=== PATIENT | male | born 1995 | race Caucasian/White ===

== ENCOUNTER → 2019-05-24 | Outpatient (CLI) | payer OTHER ==
--- NOTE | 2019-05-24 13:23 | RADIOLOGY REPORT (SQ) ---
EXAM DESCRIPTION: DUPLEX ART/BABAK FLOW COMPLETE COMPLETED DATE/TIME: 05/24/2019 11:00 am REASON FOR STUDY: HTN COMPARISON: None. TECHNIQUE: Realtime and static grayscale images acquired. Selected color Doppler, velocities and spe ctral images recorded. LIMITATIONS: Unable to visualize the renal artery origins off the aorta due to midline bowel gas FINDINGS: RIGHT KIDNEY: RENAL ARTERY VELOCITIES: At the hilum, 120 cm/sec. Segmental artery velocity 69 cm/sec. RENAL VEIN: Color doppler flow present, patent. VELOCITY RATIO: Normal. Normal waveforms. KIDNEY: Normal size. No significant pathology. LEFT KIDNEY: RENAL ARTERY VELOCITIES: At the hilum 160 cm/sec. Segmental artery velocity 69 cm/sec. RENAL VEIN: Color doppler flow present, patent. VELOCITY RATIO: Normal. Normal waveforms. KIDNEY: Normal size. No significant pathology. BLADDER: Decompressed, not well seen. OTHER: No other significant finding. IMPRESSION: NO DOPPLER EVIDENCE OF HEMODYNAMICALLY SIGNIFICANT RENAL ARTERY STENOSIS. LIMITED STUDY COMMENT: NORMAL RENAL ARTERY/AORTA VELOCITY RATIO IS LESS THAN OR EQUAL TO 3.5. TECHNICAL DOCUMENTATION: JOB ID: [id number] [email or web address]- All Rights Reserved Reading location - IP/workstation name: [email or web address]
== END ==
LOC: RAD 10:09
PROVIDERS: ATTEND Internal Medicine Cardiovascular Disease
DX: I70.1 Atherosclerosis of renal artery (principal)
CPT/HCPCS: 93975

== ENCOUNTER 2020-05-28 16:52 | Emergency (ER) | payer SELFPAY ==
[2020-05-28] MEDS ORDERED: MAG HYDROX/AL HYDROX/SIMETH SUSP 30 ML UDCUP PO ONE (20:40)
[2020-05-28] MEDS ORDERED: METOCLOPRAMIDE HCL ORAL SOLN 10 MG/10 ML UDCUP PO ONE (20:40)
[2020-05-28] MEDS ORDERED: LIDOCAINE 2% VISCOUS SOLN 15 ML UDCUP PO ONE (20:40)
--- NOTE | 2020-05-28 20:48 | ER Document Report ---
ED GI/ - General Chief Complaint: Abdominal Pain Stated Complaint: ABDOMINAL PAIN Time Seen by Provider: 05/28/20 20:07 Primary Care Provider: SUHA CAPPS MD [ACTIVE STAFF] - Follow up as needed Mode of Arrival: Ambulatory Information source: Patient Notes: 24-year-old male patient presented to the emergency department chief complaint of upper abdominal pain. Patient reports pain has been ongoing for the last 7 to 8 months. He states every time he eats he vomits. He states the only time he does not vomit after eating but if he eats a very small meal. Patient denies any fever, chills, nausea or diarrhea. He denies any sick contacts. Denies any concern for exposure to Covid. He has a history of hypertension, states he has not taken his medications as the [facility] doctor had him on multiple medications that were making him not feel well. TRAVEL OUTSIDE OF THE [place] IN LAST 30 DAYS: No - Related Data Allergies/Adverse Reactions: nifedipine Allergy (Verified 05/28/20 21:06) Past Medical History - General Information source: Patient - Social History Smoking Status: Never Smoker Frequency of alcohol use: Social Family History: Reviewed & Not Pertinent Patient has homicidal ideation: No - Past Medical History Cardiac Medical History: Reports: Hx Hypertension Past Surgical History: Reports: Hx Oral Surgery Review of Systems - Review of Systems Gastrointestinal: Abdominal pain, Vomiting -: Yes All other systems reviewed and negative Physical Exam - Vital signs Vitals: Temp Pulse Resp BP Pulse Ox 98.2 F 104 H 20 183/104 H 97 05/28/20 17:14 05/28/20 17:14 05/28/20 17:14 05/28/20 17:14 05/28/20 17:14 - Notes Notes: PHYSICAL EXAMINATION: GENERAL: Well-appearing, well-nourished and in no acute distress. HEAD: Atraumatic, normocephalic. EYES: Pupils equal round and reactive to light, extraocular movements intact, sclera anicteric, conjunctiva are normal. ENT: Nares patent, oropharynx clear without exudates. Moist mucous membranes. NECK: Normal range of motion, supple without lymphadenopathy LUNGS: Breath sounds clear to auscultation bilaterally and equal. No wheezes rales or rhonchi. HEART: Regular rate and rhythm without murmurs ABDOMEN: Soft, nondistended abdomen. Epigastric tenderness with palpation. No guarding, no rebound. No masses appreciated. Musculoskeletal: Normal range of motion, no pitting or edema. No cyanosis. NEUROLOGICAL: Cranial nerves grossly intact. Normal speech, normal gait. Normal sensory, motor exams PSYCH: Normal mood, normal affect. SKIN: Warm, Dry, normal turgor, no rashes or lesions noted. Course - Re-evaluation Re-evalutation: Work-up today has been reassuring. Patient had a CT and abdomen pelvis which showed no acute findings. Laboratory investigations without any acute findings. Patient will be referred to gastroenterology for possible endoscopy for his epigastric pain. We will start him on some Carafate and omeprazole. Patient agreeable to this plan. ED return precautions discussed, patient verbalized understanding and agreement with same. - Vital Signs Vital signs: Temp Pulse Resp BP Pulse Ox 98.2 F 78 19 155/99 H 98 05/29/20 00:22 05/29/20 00:22 05/29/20 00:22 05/29/20 00:22 05/29/20 00:22 - Laboratory Results Result Diagrams: 05/28/20 21:20 05/28/20 21:20 Laboratory Results Interpreted: 05/28/20 05/28/20 21:20 21:20 RDW 14.1 H Sodium 136.4 L AST 68 H ALT 114 H Critical Laboratory Results Reviewed: No Critical Results - Radiology Results Critical Radiology Results Reviewed: No Critical Results Discharge - Discharge Clinical Impression: Epigastric pain Gastroesophageal reflux Qualifiers: Esophagitis presence: with esophagitis Esophagitis bleeding: unspecified whet her hemorrhage Qualified Code(s): K21.00 - Gastro-esophageal reflux disease with esophagitis, without bleeding Condition: Stable Disposition: HOME, SELF-CARE Additional Instructions: Please take medications as prescribed. Continue to eat small meals. Follow-up with gastroenterology for consideration of a endoscopy. Return if any new or worsening conditions. Prescriptions: Sucralfate [Carafate 1 gm Tablet] 1 gm PO ACHS #60 tablet Omeprazole 40 mg PO DAILY #30 capsule.dr Referrals: SUHA CAPPS MD [ACTIVE STAFF] - Follow up as needed
[2020-05-28 21:45] LABS: ABSOLUTE EOSINOPHILS # (AUTO) 0.1 10^3/uL (0.0-0.6); ABSOLUTE LYMPHOCYTES (AUTO) 2.5 10^3/uL (0.5-4.7); ABSOLUTE MONOCYTES (AUTO) 0.7 10^3/uL (0.1-1.4); ABSOLUTE NEUT (AUTO) 5.5 10^3/uL (1.7-8.2); BASOPHILS % (AUTO) 0.4 % (0-2); EOSINOPHILS % (AUTO) 0.9 % (0-6); HEMATOCRIT 42.8 % (37.9-51.0); HEMOGLOBIN 14.8 g/dL (13.5-17.0); MEAN CORPUSCULAR HEMOGLOBIN 31.5 pg (27.0-33.4); MEAN CORPUSCULAR HGB CONC 34.5 g/dL (32.0-36.0); MEAN CORPUSCULAR VOLUME 91 fl (80-97); PLATELET COUNT 205 10^3/uL (150-450); RED BLOOD COUNT 4.69 10^6/uL (4.35-5.55); RED CELL DISTRIBUTION WIDTH 14.1 % (11.5-14.0); SEGMENTED NEUTROPHILS % (AUTO) 62.7 % (42-78); TOTAL CELLS COUNTED % (AUTO) 100 %; WHITE BLOOD COUNT 8.8 10^3/uL (4.0-10.5)
[2020-05-28 21:51] LABS: ALBUMIN 4.6 g/dL (3.5-5.0); ALKALINE PHOSPHATASE 107 U/L (38-126); ANION GAP 8 (5-19); ASPARTATE AMINO TRANSFERASE 68 U/L (17-59); BILIRUBIN,DIRECT 0.1 mg/dL (0.0-0.4); BILIRUBIN,TOTAL 0.7 mg/dL (0.2-1.3); BLOOD UREA NITROGEN 16 mg/dL (7-20); CARBON DIOXIDE 26 mmol/L (22-30); CHLORIDE 102 mmol/L (98-107); GLUCOSE 85 mg/dL (75-110); POTASSIUM 4.2 mmol/L (3.6-5.0); TOTAL PROTEIN 7.6 g/dL (6.3-8.2)
--- NOTE | 2020-05-28 23:17 | RADIOLOGY REPORT (SQ) ---
CT ABDOMEN AND PELVIS WITH INTRAVENOUS CONTRAST: 05/28/2020 10:14 PM [employer] HISTORY: 24-year old with upper abdominal pain. COMPARISON: None available TECHNIQUE: Axial contiguous images were obtained from the lung bases to the proximal femurs with intravenous intravenous contrast administered. Sagittal and coronal reconstructions were also obtained and reviewed. This exam was performed according to our departmental dose-optimization program, which includes automated exposure control, adjustment of the mA and/or KV according to the patient's size and/or use of iterative reconstruction technique. FINDINGS: No focal consolidative airspace opacities are seen. No discrete pleural effusions are seen. The visualized hepatic parenchyma appears diffusely hypodense, suggesting hepatic steatosis. No focal enhancing lesion is seen. The main portal vein is well opacified with contrast. The gallbladder demonstrates no evidence of calcified gallstones. The spleen is normal in size. The pancreas is unremarkable. The bilateral adrenal glands appear unremarkable. Both kidneys demonstrate no evidence of hydronephrosis. No renal or ureteral calculi are seen. The urinary bladder is mildly distended, and appears grossly unremarkable. The stomach is not well distended. The small bowel loops appear unremarkable. No pericolonic inflammatory stranding is seen. The appendix appears unremarkable. An anterior umbilical hernia containing omental fat is seen. There is no evidence of pneumoperitoneum or free fluid. The aorta and IVC appear normal in size. No significantly enlarged lymph nodes are seen in the abdomen or pelvis. Review of the bone show no evidence of any suspicious lytic or blastic lesions. IMPRESSION: No acute process is seen within the abdomen or pelvis. Hepatic steatosis
[2020-05-28 23:38] LABS: APPEARANCE,URINE CLEAR; BILIRUBIN,URINE NEGATIVE (NEGATIVE); COLOR,URINE YELLOW; GLUCOSE, URINE NEGATIVE (NEGATIVE); KETONES,URINE NEGATIVE (NEGATIVE); LEUKOCYTE ESTERASE,URINE NEGATIVE (NEGATIVE); NITRITE,URINE NEGATIVE (NEGATIVE); PROTEIN,URINE NEGATIVE (NEGATIVE); UROBILINOGEN,URINE NEGATIVE mg/dL (<2.0)
[2020-05-28 23:42] LABS: URINE SPECIFIC GRAVITY > 1.060
[2020-05-29 00:23] VITALS: BP 155/99
== END 2020-05-29 00:22 | disposition home or self-care (01) ==
LOC: ER 16:52
DX: K21.00 Gastro-esophageal reflux disease with esophagitis, without bleeding (principal); R10.13 Epigastric pain; I10 Essential (primary) hypertension
CPT/HCPCS: 99285; 36415; 83690; 85025; 80053; 81001; 74177; J3490